=== PATIENT | female | born 1985 | race Caucasian/White ===

== ENCOUNTER → 2020-02-26 | Outpatient (CLI) | payer BC ==
[2020-02-26 14:43] LABS: CHLORIDE 105 mEq/L (98-107)
[2020-02-26 15:30] LABS: BASOPHILS % 0.3 % (0.0-2.0); EOSINOPHILS % 2.2 % (0.0-5.0); HEMATOCRIT. 40.2 % (36.0-48.0); HEMOGLOBIN. 13.4 g/dL (12.0-16.0); MEAN CORPUSCULAR HEMOGLOBIN 30.4 pg (28.0-32.0); MEAN CORPUSCULAR VOLUME 91.1 fL (81.0-99.0); MEAN PLATELET VOLUME 8.1 fl (7.4-10.4); MONOCYTES % 4.9 % (2.0-8.0); NEUTROPHILS % 67.6 % (40.0-76.0); PLATELET 196 x1000/uL (130-400); RED BLOOD CELL COUNT 4.41 mill/uL (4.2-5.4); RED CELL DISTRIBUTION WIDTH 13.6 % (11.6-14.6)
== END | disposition home or self-care (01) ==
LOC: LAB 14:11
DX: Z00.00 Encounter for general adult medical examination without abnormal findings (principal)
CPT/HCPCS: 36415; 80048; 85025

== ENCOUNTER → 2020-12-07 | Outpatient (CLI) | payer BC ==
[2020-12-07 10:31] LABS: BASOPHILS % 0.4 % (0.0-2.0); EOSINOPHILS % 5.2 % (0.0-5.0); HEMATOCRIT. 41.5 % (36.0-48.0); HEMOGLOBIN. 13.8 g/dL (12.0-16.0); LYMPHOCYTES % 32.8 % (20.0-50.0); MEAN CORPUSCULAR HEMOGLOBIN 29.7 pg (28.0-32.0); MEAN CORPUSCULAR VOLUME 89.2 fL (81.0-99.0); MEAN PLATELET VOLUME 7.8 fl (7.4-10.4); MONOCYTES % 6.2 % (2.0-8.0); NEUTROPHILS % 55.4 % (40.0-76.0); PLATELET 225 x1000/uL (130-400); RED BLOOD CELL COUNT 4.66 mill/uL (4.2-5.4); RED CELL DISTRIBUTION WIDTH 13.8 % (11.6-14.6)
[2020-12-07 10:40] LABS: CHLORIDE 108 mEq/L (98-107)
[2020-12-07 10:52] LABS: HDL CHOLESTEROL 53 mg/dL (40-59)
[2020-12-07 10:55] LABS: LDL CHOLESTEROL 97 mg/dL (5-100)
== END | disposition home or self-care (01) ==
LOC: LAB 09:57
PROVIDERS: ATTEND Family Medicine
DX: Z00.00 Encounter for general adult medical examination without abnormal findings (principal)
CPT/HCPCS: 36415; 80053; 80061; 83036; 84443; 85025; 87077; 87186

== ENCOUNTER → 2021-03-12 | Outpatient (CLI) | payer BC ==
[2021-03-12 11:55] LABS: BASOPHILS % 0.2 % (0.0-2.0); EOSINOPHILS % 4.4 % (0.0-5.0); HEMATOCRIT. 37.9 % (36.0-48.0); HEMOGLOBIN. 13.2 g/dL (12.0-16.0); LYMPHOCYTES % 25.4 % (20.0-50.0); MEAN CORPUSCULAR VOLUME 88.9 fL (81.0-99.0); MEAN PLATELET VOLUME 7.9 fl (7.4-10.4); MONOCYTES % 5.3 % (2.0-8.0); NEUTROPHILS % 64.7 % (40.0-76.0); PLATELET 208 x1000/uL (130-400); RED BLOOD CELL COUNT 4.27 mill/uL (4.2-5.4); RED CELL DISTRIBUTION WIDTH 13.7 % (11.6-14.6)
[2021-03-12 12:53] LABS: TOTAL IRON BINDING CAPACITY 305 ug/dL (250-450)
== END | disposition home or self-care (01) ==
LOC: LAB 11:10
PROVIDERS: ATTEND Family Medicine
DX: D64.9 Anemia, unspecified (principal)
CPT/HCPCS: 36415; 82306; 83540; 83550; 85025

== ENCOUNTER → 2021-05-02 | Outpatient (CLI) | payer BC ==
[2021-05-02 09:42] LABS: BASOPHILS % 0.3 % (0.0-2.0); HEMATOCRIT. 39.9 % (36.0-48.0); HEMOGLOBIN. 13.5 g/dL (12.0-16.0); LYMPHOCYTES % 27.9 % (20.0-50.0); MEAN CORPUSCULAR HEMOGLOBIN 29.6 pg (28.0-32.0); MEAN CORPUSCULAR VOLUME 87.8 fL (81.0-99.0); MEAN PLATELET VOLUME 8.7 fl (7.4-10.4); MONOCYTES % 4.5 % (2.0-8.0); NEUTROPHILS % 62.3 % (40.0-76.0); PLATELET 200 x1000/uL (130-400); RED BLOOD CELL COUNT 4.55 mill/uL (4.2-5.4); RED CELL DISTRIBUTION WIDTH 13.9 % (11.6-14.6)
[2021-05-02 09:52] LABS: CHLORIDE 107 mEq/L (98-107)
[2021-05-02 09:59] LABS: LDL CHOLESTEROL 100 mg/dL (5-100)
[2021-05-02 10:01] LABS: HDL CHOLESTEROL 39 mg/dL (40-59); T4 FREE 0.98 ng/dL (0.76-1.46)
[2021-05-03 07:11] LABS: FOLICLE STIMULATING HORMONE 11.6 mIU/mL (.); LUTEINIZING HORMONE 84.2 mIU/mL (.); PROGESTERONE 0.8 ng/mL (.); THYROID PEROXIDASE ANTIBODY < 8 IU/mL (0-34)
== END | disposition home or self-care (01) ==
LOC: LAB 08:31
PROVIDERS: ATTEND Internal Medicine Endocrinology, Diabetes & Metabolism
DX: E11.65 Type 2 diabetes mellitus with hyperglycemia (principal); R53.1 Weakness; E03.9 Hypothyroidism, unspecified
CPT/HCPCS: 36415; 80053; 80061; 82024; 82533; 82670; 83001; 83002; 83036; 84144; 84439; 84443; 84481; 85025; 86376

== ENCOUNTER → 2021-05-24 | Outpatient (CLI) | payer BC ==
[2021-05-24 09:09] LABS: BASOPHILS % 0.3 % (0.0-2.0); EOSINOPHILS % 6.1 % (0.0-5.0); HEMATOCRIT. 39.5 % (36.0-48.0); HEMOGLOBIN. 13.5 g/dL (12.0-16.0); LYMPHOCYTES % 27.3 % (20.0-50.0); MEAN CORPUSCULAR HEMOGLOBIN 30.1 pg (28.0-32.0); MEAN CORPUSCULAR VOLUME 87.8 fL (81.0-99.0); MEAN PLATELET VOLUME 8.3 fl (7.4-10.4); MONOCYTES % 4.9 % (2.0-8.0); NEUTROPHILS % 61.4 % (40.0-76.0); PLATELET 219 x1000/uL (130-400); RED CELL DISTRIBUTION WIDTH 14.3 % (11.6-14.6)
[2021-05-24 09:21] LABS: CHLORIDE 110 mEq/L (98-107)
[2021-05-25 09:07] LABS: FOLICLE STIMULATING HORMONE 6.9 mIU/mL (.); LUTEINIZING HORMONE 11.5 mIU/mL (.)
== END | disposition home or self-care (01) ==
LOC: LAB 08:27
PROVIDERS: ATTEND Internal Medicine Endocrinology, Diabetes & Metabolism
DX: R53.82 Chronic fatigue, unspecified (principal)
CPT/HCPCS: 36415; 80053; 82157; 82626; 83001; 83002; 84146; 84305; 84402; 84403; 85025

== ENCOUNTER → 2021-07-10 | Outpatient (CLI) | payer BC | END | disposition home or self-care (01) | LOC: MRI 13:56 | PROVIDERS: ATTEND Family Medicine | DX: M47.27 Other spondylosis with radiculopathy, lumbosacral region (principal); R07.2 Precordial pain; M79.669 Pain in unspecified lower leg | CPT/HCPCS: 72148; 72195 ==

== ENCOUNTER → 2021-09-02 | Outpatient (CLI) | payer BC ==
[2021-09-02 13:17] LABS: BASOPHILS % 0.4 % (0.0-2.0); EOSINOPHILS % 4.8 % (0.0-5.0); HEMATOCRIT. 41.2 % (36.0-48.0); HEMOGLOBIN. 13.7 g/dL (12.0-16.0); LYMPHOCYTES % 27.6 % (20.0-50.0); MEAN CORPUSCULAR HEMOGLOBIN 30.1 pg (28.0-32.0); MEAN CORPUSCULAR VOLUME 90.2 fL (81.0-99.0); MEAN PLATELET VOLUME 8.4 fl (7.4-10.4); MONOCYTES % 4.7 % (2.0-8.0); NEUTROPHILS % 62.5 % (40.0-76.0); PLATELET 208 x1000/uL (130-400); RED BLOOD CELL COUNT 4.57 mill/uL (4.2-5.4); RED CELL DISTRIBUTION WIDTH 13.3 % (11.6-14.6)
[2021-09-02 13:37] LABS: T4 FREE 1.17 ng/dL (0.76-1.46)
[2021-09-02 16:30] LABS: HEPATITIS B SURFACE AB 21.1 mIU/mL; TRIOIODOTHYRONINE TOTAL 1.13 ng/ml (0.60-1.81)
[2021-09-04 09:09] LABS: HBSAG SCREEN Negative (Negative); HEPATITIS C AB 0.2 s/co ratio (0.0-0.9); HIV SCREEN 4G Non Reactive (Non Reactive)
[2021-09-05 08:09] LABS: HGB A2 2.8 % (1.8-3.2)
[2021-09-07 04:07] LABS: 25-HYDROXY VITAMIN D3 56 ng/mL (.)
== END | disposition home or self-care (01) ==
LOC: LAB 08:46
PROVIDERS: ATTEND Obstetrics & Gynecology Obstetrics
DX: Z34.00 Encounter for supervision of normal first pregnancy, unspecified trimester (principal); E55.9 Vitamin D deficiency, unspecified; Z3A.00 Weeks of gestation of pregnancy not specified
CPT/HCPCS: 36415; 82306; 82947; 83021; 83036; 84439; 84443; 84480; 85025; 85660; 86592; 86706; 86762; 86765; 86803; 86850; 86900; 87340; 87389

== ENCOUNTER → 2021-10-25 | Outpatient (CLI) | payer BC | END | disposition home or self-care (01) | LOC: LAB 13:53 | DX: Z33.1 Pregnant state, incidental (principal) ==

== ENCOUNTER → 2021-11-22 | Outpatient (CLI) | payer BC | END | disposition home or self-care (01) | LOC: US 11:47 | PROVIDERS: ATTEND Obstetrics & Gynecology Obstetrics | DX: R10.9 Unspecified abdominal pain (principal) | CPT/HCPCS: 76770 ==

== ENCOUNTER 2021-12-16 15:24 | Inpatient (IN) | payer BC ==
[~2021-12-16] VITALS: Ht 175.3 cm; Wt 75.0 kg
[2021-12-16] MEDS ORDERED: SODIUM CHLORIDE 0.9% 1,000 ML IV ONE (16:30)
[2021-12-16 16:48] LABS: BASOPHILS % 0.1 % (0.0-2.0); EOSINOPHILS % 2.2 % (0.0-5.0); HEMATOCRIT. 38.7 % (36.0-48.0); HEMOGLOBIN. 13.4 g/dL (12.0-16.0); LYMPHOCYTES % 14.1 % (20.0-50.0); MEAN CORPUSCULAR HEMOGLOBIN 30.6 pg (28.0-32.0); MEAN CORPUSCULAR VOLUME 88.5 fL (81.0-99.0); MEAN PLATELET VOLUME 8.5 fl (7.4-10.4); MONOCYTES % 4.1 % (2.0-8.0); NEUTROPHILS % 79.5 % (40.0-76.0); PLATELET 220 x1000/uL (130-400); RED BLOOD CELL COUNT 4.37 mill/uL (4.2-5.4); RED CELL DISTRIBUTION WIDTH 13.3 % (11.6-14.6)
[2021-12-16 16:53] LABS: CHLORIDE 102 mEq/L (98-107)
[2021-12-16 16:58] LABS: D-DIMER 1.38 mg/L FEU (<0.50); INR 0.9; PROTHROMBIN TIME 9.8 sec (9.6-11.0)
[2021-12-16] MEDS ORDERED: SODIUM CHLORIDE 0.9% 500 ML IV ONE (23:30)
[2021-12-17 00:32] LABS: CLARITY URINE CLEAR (CLEAR); COLOR URINE YELLOW (YELLOW); PH URINE 6.5 (4.5-8.0); SPECIFIC GRAVITY URINE 1.015 (1.005-1.030)
[2021-12-17 00:33] LABS: KETONES URINE NEGATIVE (NEGATIVE); LEUKOCYTE ESTERASE URINE NEGATIVE (NEGATIVE); NITRITE URINE NEGATIVE (NEGATIVE); OCCULT BLOOD URINE NEGATIVE (NEGATIVE); PROTEIN URINE NEGATIVE (NEGATIVE); UROBILINOGEN URINE 0.2 E.U./dL (0.2-1.0)
[2021-12-17] MEDS ORDERED: SODIUM CHLORIDE 0.9% 1,000 ML IV ONE (05:45)
[2021-12-17] MEDS ORDERED: IOHEXOL-350 100 ML BOTTLE ONE (10:52)
[2021-12-17 10:59] VITALS: BP 104/59
[2021-12-17 11:00] VITALS: BP 118/59
[2021-12-17 11:41] VITALS: BP 106/56
== END 2021-12-17 12:15 | disposition home or self-care (01) | DRG 833 ==
LOC: ER 15:46 → 7EST 12-17 08:46 → EDBEDREQTM 12-17 08:51 → EDBEDREQ 12-17 08:51 → ENRESERV 12-17 09:09
PROVIDERS: ADMIT Hospitalist; ATTEND Hospitalist
DX: O26.52 Maternal hypotension syndrome, second trimester (principal); O99.512 Diseases of the respiratory system complicating pregnancy, second trimester; J45.909 Unspecified asthma, uncomplicated; K58.9 Irritable bowel syndrome, unspecified; O99.612 Diseases of the digestive system complicating pregnancy, second trimester; N80.03 Adenomyosis of the uterus; O34.82 Maternal care for other abnormalities of pelvic organs, second trimester; Z3A.21 21 weeks gestation of pregnancy; Z88.2 Allergy status to sulfonamides; Z88.8 Allergy status to other drugs, medicaments and biological substances; Z88.1 Allergy status to other antibiotic agents
CPT/HCPCS: 36415; 71045; 71275; 76805; 80053; 81003; 84484; 85025; 85379; 93005; 93970; 99285; J7030; J7040; Q9967

== ENCOUNTER → 2021-12-27 | Outpatient (CLI) | payer BC ==
[2021-12-27 12:51] LABS: BASOPHILS % 0.1 % (0.0-2.0); EOSINOPHILS % 2.2 % (0.0-5.0); HEMATOCRIT. 33.6 % (36.0-48.0); HEMOGLOBIN. 11.5 g/dL (12.0-16.0); LYMPHOCYTES % 18.4 % (20.0-50.0); MEAN CORPUSCULAR HEMOGLOBIN 30.7 pg (28.0-32.0); MEAN CORPUSCULAR VOLUME 89.4 fL (81.0-99.0); MEAN PLATELET VOLUME 7.8 fl (7.4-10.4); NEUTROPHILS % 74.3 % (40.0-76.0); PLATELET 206 x1000/uL (130-400); RED BLOOD CELL COUNT 3.75 mill/uL (4.2-5.4); RED CELL DISTRIBUTION WIDTH 13.5 % (11.6-14.6)
[2021-12-27 13:08] LABS: CHLORIDE 105 mEq/L (98-107)
[2021-12-27 13:21] LABS: HDL CHOLESTEROL 61 mg/dL (40-59); LDL CHOLESTEROL 106 mg/dL (5-100); T4 FREE 0.96 ng/dL (0.76-1.46)
== END | disposition home or self-care (01) ==
LOC: LAB 12:18
PROVIDERS: ATTEND Specialist
DX: E11.9 Type 2 diabetes mellitus without complications (principal); E78.2 Mixed hyperlipidemia; E55.9 Vitamin D deficiency, unspecified; D64.9 Anemia, unspecified
CPT/HCPCS: 36415; 80053; 80061; 82306; 83036; 84439; 84443; 85025

== ENCOUNTER → 2022-01-24 | Outpatient (CLI) | payer BC | END | disposition home or self-care (01) | LOC: LAB 11:35 | PROVIDERS: ATTEND Obstetrics & Gynecology Obstetrics | DX: Z13.1 Encounter for screening for diabetes mellitus (principal) | CPT/HCPCS: 82947; 82950 ==

== ENCOUNTER → 2022-02-21 | Day surgery (SDC) | payer BC | END | disposition home or self-care (01) | LOC: CARD 10:10 | PROVIDERS: ATTEND Specialist | DX: R00.2 Palpitations (principal); I10 Essential (primary) hypertension | CPT/HCPCS: 93306 ==

== ENCOUNTER → 2022-02-22 | Outpatient (CLI) | payer BC | END | disposition home or self-care (01) | LOC: LAB 10:57 | PROVIDERS: ATTEND Obstetrics & Gynecology Obstetrics | DX: O99.810 Abnormal glucose complicating pregnancy (principal); Z3A.34 34 weeks gestation of pregnancy | CPT/HCPCS: 36415; 82951 ==

== ENCOUNTER 2022-04-02 12:00 | Observation (INO) | payer BC ==
[~2022-04-02] VITALS: Ht 176.5 cm; Wt 74.8 kg
== END 2022-04-02 13:05 | disposition home or self-care (01) ==
LOC: 8 EST LDRP 12:00
PROVIDERS: ADMIT Obstetrics & Gynecology Obstetrics; ATTEND Obstetrics & Gynecology Obstetrics
DX: O42.913 Preterm premature rupture of membranes, unspecified as to length of time between rupture and onset of labor, third trimester (principal); Z3A.36 36 weeks gestation of pregnancy
CPT/HCPCS: 59025; 99281; G0378

== ENCOUNTER 2022-04-18 22:19 | Inpatient (IN) | payer BC ==
[~2022-04-18] VITALS: Ht 176.5 cm; Wt 74.8 kg
[2022-04-18] MEDS ORDERED: LIDOCAINE HCL 1% 10 MG/ML 10ML VIAL IJ SCH (22:45)
[2022-04-18] MEDS ORDERED: BUTORPHANOL TARTRATE 2 MG/ML VIAL IV PRN (22:45)
[2022-04-18] MEDS ORDERED: METHYLERGONOVINE MALEATE 0.2 MG/ML IM PRN (22:45)
[2022-04-18] MEDS ORDERED: RHO(D) IMMUNE GLOBULIN 300 MCG/SYR IM ONE (22:45)
[2022-04-18] MEDS ORDERED: MISOPROSTOL 100MCG TABLET VG SCH (22:45)
[2022-04-18] MEDS ORDERED: CARBOPROST TROMETHAMINE 250 MCG/ML AMPUL IM PRN (22:45)
[2022-04-18] MEDS ORDERED: NALOXONE HCL 0.4 MG/ML 1ML VIAL IM PRN (22:45)
[2022-04-18] MEDS: LACTATED RINGERS 1,000 ML IV SCH (23:39)
[2022-04-18 23:46] LABS: CLARITY URINE CLEAR (CLEAR); COLOR URINE YELLOW (YELLOW); KETONES URINE NEGATIVE (NEGATIVE); LEUKOCYTE ESTERASE URINE NEGATIVE (NEGATIVE); NITRITE URINE NEGATIVE (NEGATIVE); OCCULT BLOOD URINE NEGATIVE (NEGATIVE); PH URINE 7.5 (4.5-8.0); PROTEIN URINE NEGATIVE (NEGATIVE); SPECIFIC GRAVITY URINE 1.007 (1.005-1.030); UROBILINOGEN URINE 0.2 E.U./dL (0.2-1.0)
[2022-04-18 23:50] LABS: BASOPHILS % 0.2 % (0.0-2.0); EOSINOPHILS % 1.7 % (0.0-5.0); HEMATOCRIT. 37.5 % (36.0-48.0); HEMOGLOBIN. 12.6 g/dL (12.0-16.0); LYMPHOCYTES % 18.1 % (20.0-50.0); MEAN CORPUSCULAR VOLUME 86.7 fL (81.0-99.0); MEAN PLATELET VOLUME 8.8 fl (7.4-10.4); MONOCYTES % 4.5 % (2.0-8.0); NEUTROPHILS % 75.5 % (40.0-76.0); PLATELET 187 x1000/uL (130-400); RED BLOOD CELL COUNT 4.32 mill/uL (4.2-5.4); RED CELL DISTRIBUTION WIDTH 15.2 % (11.6-14.6)
[2022-04-18 23:57] LABS: *AMPHETAMINES SCREEN URINE NEGATIVE (NEGATIVE); *BARBITURATES SCREEN URINE NEGATIVE (NEGATIVE); *BENZODIAZEPINES SCREEN URINE NEGATIVE (NEGATIVE); *COCAINE SCREEN URINE NEGATIVE (NEGATIVE); CANNABINOID URINE SCREEN NEGATIVE (NEGATIVE); INR 0.9; METHADONE URINE SCREEN NEGATIVE (NEGATIVE); OPIATES URINE SCREEN NEGATIVE (NEGATIVE); PARTIAL THROMBOPLASTIN TIME 26.6 sec (23.4-31.0); PHENCYCLIDINE URINE SCREEN NEGATIVE (NEGATIVE); PROTHROMBIN TIME 9.9 sec (9.6-11.0)
[2022-04-19] MEDS ORDERED: PNV1TABL76 PO (00:45)
[2022-04-19] MEDS ORDERED: VIT1TABL62 PO (00:45)
[2022-04-19] MEDS ORDERED: FERR325T6 PO (00:45)
[2022-04-19] MEDS: LACTATED RINGERS 1,000 ML IV SCH ×3 (00:52→09:06)
[2022-04-19] MEDS ORDERED: ROPIVACAINE HCL/PF EPIDURAL 200 ML EPI SCH (01:00)
[2022-04-19 01:57] LABS: HEPATITIS B SURFACE ANTIGEN NEGATIVE
[2022-04-19] MEDS: ONDANSETRON HCL 4MG/2ML INJ IV PRN ×2 (04:26→09:03)
[2022-04-19] MEDS ORDERED: ONDANSETRON HCL 4MG/2ML INJ IV PRN (04:45)
[2022-04-19] MEDS ORDERED: MINERAL OIL 30ML BOTTLE TOP NR (05:45)
[2022-04-19] MEDS ORDERED: BENZOCAINE/LANOLIN/ALOE VERA SPRAY TOP PRN (10:45)
[2022-04-19] MEDS ORDERED: LANOLIN OINT 7GM TUBE TOP PRN (10:45)
[2022-04-19] MEDS ORDERED: IBUPROFEN 400MG TABLET PO PRN (10:45)
[2022-04-19] MEDS ORDERED: BISACODYL 10MG SUPP PR PRN (10:45)
[2022-04-19] MEDS ORDERED: ACETAMINOPHEN 500MG TABLET PO PRN (10:45)
[2022-04-19] MEDS: OXYTOCIN 30 UNITS/500ML NS PMX 500 ML IV SCH ×2 (11:09→11:25)
[2022-04-19 14:00] VITALS: BP 109/65
[2022-04-19 16:10] VITALS: BP 108/59
[2022-04-19 19:30] VITALS: BP 109/56
[2022-04-20 04:00] VITALS: BP 96/50
[2022-04-20] MEDS: GLYCERIN/WITCH HAZEL LEAF MEDICATED PAD TOP PRN ×2 (04:47→13:07)
[2022-04-20 07:59] LABS: BASOPHILS % 0.1 % (0.0-2.0); EOSINOPHILS % 1.1 % (0.0-5.0); LYMPHOCYTES % 11.7 % (20.0-50.0); MEAN PLATELET VOLUME 8.5 fl (7.4-10.4); MONOCYTES % 3.7 % (2.0-8.0); NEUTROPHILS % 83.4 % (40.0-76.0); PLATELET 153 x1000/uL (130-400); RED BLOOD CELL COUNT 3.79 mill/uL (4.2-5.4); RED CELL DISTRIBUTION WIDTH 15.7 % (11.6-14.6)
[2022-04-20 08:00] VITALS: BP 96/59
[2022-04-23 04:17] LABS: HIV SCREEN 4G Non Reactive (Non Reactive)
== END 2022-04-20 14:40 | disposition home or self-care (01) | DRG 807 ==
LOC: 8 EST LDRP 22:19 → OBSVTOIN 22:19 → 8EST 04-19 14:00
PROVIDERS: ADMIT Obstetrics & Gynecology Obstetrics; ATTEND Obstetrics & Gynecology Obstetrics
PROC: 10E0XZZ Delivery of Products of Conception, External Approach (ICD-10-PCS; principal; 2022-04-20)
DX: O80 Encounter for full-term uncomplicated delivery (principal); Z37.0 Single live birth; Z3A.38 38 weeks gestation of pregnancy; Z20.822 Contact with and (suspected) exposure to COVID-19; Z88.0 Allergy status to penicillin; Z88.2 Allergy status to sulfonamides; Z88.3 Allergy status to other anti-infective agents
CPT/HCPCS: 36415; 80305; 81003; 85025; 86592; 86762; 86850; 86900; 87340; 87389; 87426; 99281; G0378; J0595; J2405; J2795; A4315; J2590

== ENCOUNTER 2024-01-03 12:18 | Emergency (ER) | payer BC ==
[~2024-01-03 12:18] MED LIST: FERR325T6 PO; PNV1TABL76 PO; VIT1TABL62 PO
[2024-01-03 13:25] LABS: BASOPHILS % 0.5 % (0.0-2.0); EOSINOPHILS % 3.6 % (0.0-5.0); HEMATOCRIT. 44.7 % (36.0-48.0); HEMOGLOBIN. 14.5 g/dL (12.0-16.0); LYMPHOCYTES % 23.7 % (20.0-50.0); MEAN CORPUSCULAR HEMOGLOBIN 29.3 pg (28.0-32.0); MEAN CORPUSCULAR HGB CONC 32.5 g/dL (31.0-37.0); MEAN CORPUSCULAR VOLUME 89.9 fL (81.0-99.0); MONOCYTES % 4.2 % (2.0-8.0); PLATELET 251 x1000/uL (130-400); RED BLOOD CELL COUNT 4.97 mill/uL (4.2-5.4); RED CELL DISTRIBUTION WIDTH 14.3 % (11.6-14.6); WHITE BLOOD COUNT 5.7 x1000/uL (4.5-11.0)
[2024-01-03 13:37] LABS: CHLORIDE 107 mEq/L (98-107); POTASSIUM 4.2 mEq/L (3.5-5.1); SODIUM 138 mEq/L (136-145)
[2024-01-03 13:38] LABS: CALCIUM 10.2 mg/dL (8.7-10.4); CARBON DIOXIDE 26 mEq/L (21-32)
[2024-01-03 13:43] LABS: CREATININE 0.7 mg/dL (0.6-1.0); GLUCOSE 89 mg/dL (70-105); TRIGLYCERIDE 77 mg/dL (0-150); UREA NITROGEN BLOOD 12 mg/dL (9-23)
[2024-01-03 13:44] LABS: LDL CHOLESTEROL 140 mg/dL (5-100)
[2024-01-03 13:45] LABS: ALANINE AMINOTRANSFERASE 13 IU/L (10-49); ALBUMIN 5.1 g/dL (3.2-4.8); ASPARTATE AMINOTRANSFERASE 16 IU/L (<34); CHOLESTEROL 209 mg/dL (<200); HDL CHOLESTEROL 57 mg/dL (>65)
[2024-01-03 13:46] LABS: BILIRUBIN TOTAL 0.6 mg/dL (0.1-1.0); PROTEIN TOTAL 8.4 g/dL (6.0-8.3)
[2024-01-03 13:48] LABS: VITAMIN B12 SERUM 615 pg/mL (211-911)
[2024-01-03 13:49] LABS: THYROID STIMULATING HORMONE 1.11 uIU/mL (0.55-4.78)
[2024-01-06 09:06] LABS: FOLICLE STIMULATING HORMONE 4.4 mIU/mL (.)
[2024-01-06 13:12] LABS: ANTI-NUCLEAR ANTIBODIES DIRECT Negative (Negative)
== END 2024-01-03 13:01 | disposition left against medical advice (07) ==
LOC: ER 12:18
DX: R68.89 Other general symptoms and signs (principal); Z53.21 Procedure and treatment not carried out due to patient leaving prior to being seen by health care provider
CPT/HCPCS: 99281

== ENCOUNTER → 2024-03-29 | Outpatient (CLI) | payer BC ==
[2024-03-29 12:32] LABS: BASOPHILS % 0.3 % (0.0-2.0); EOSINOPHILS % 4.8 % (0.0-5.0); HEMATOCRIT. 35.9 % (36.0-48.0); HEMOGLOBIN. 12.1 g/dL (12.0-16.0); LYMPHOCYTES % 29.4 % (20.0-50.0); MEAN CORPUSCULAR HEMOGLOBIN 30.2 pg (28.0-32.0); MEAN CORPUSCULAR HGB CONC 33.7 g/dL (31.0-37.0); MEAN CORPUSCULAR VOLUME 89.7 fL (81.0-99.0); MEAN PLATELET VOLUME 8.4 fl (7.4-10.4); NEUTROPHILS % 60.5 % (40.0-76.0); PLATELET 211 x1000/uL (130-400); RED BLOOD CELL COUNT 4.01 mill/uL (4.2-5.4); RED CELL DISTRIBUTION WIDTH 14.1 % (11.6-14.6); WHITE BLOOD COUNT 5.2 x1000/uL (4.5-11.0)
[2024-03-29 12:33] LABS: CLARITY URINE CLEAR (CLEAR); COLOR URINE YELLOW (YELLOW); GLUCOSE URINE NEGATIVE (NEGATIVE); KETONES URINE NEGATIVE (NEGATIVE); LEUKOCYTE ESTERASE URINE NEGATIVE (NEGATIVE); NITRITE URINE NEGATIVE (NEGATIVE); OCCULT BLOOD URINE 3+ (NEGATIVE); PROTEIN URINE NEGATIVE (NEGATIVE); SPECIFIC GRAVITY URINE 1.003 (1.005-1.030); UROBILINOGEN URINE 0.2 E.U./dL (0.2-1.0)
[2024-03-29 12:36] LABS: CHLORIDE 110 mEq/L (98-107); POTASSIUM 3.3 mEq/L (3.5-5.1); SODIUM 142 mEq/L (136-145)
[2024-03-29 12:37] LABS: CALCIUM 9.3 mg/dL (8.7-10.4); CARBON DIOXIDE 23 mEq/L (21-32)
[2024-03-29 12:42] LABS: CREATININE 0.7 mg/dL (0.6-1.0); GLUCOSE 95 mg/dL (70-105); UREA NITROGEN BLOOD 11 mg/dL (9-23)
[2024-03-29 12:43] LABS: C REACTIVE PROTEIN HIGH SENS 4.99 mg/l (<1.00)
[2024-03-29 12:44] LABS: ALANINE AMINOTRANSFERASE 9 IU/L (10-49); ALBUMIN 3.9 g/dL (3.2-4.8); ASPARTATE AMINOTRANSFERASE 13 IU/L (<34); BILIRUBIN TOTAL 0.3 mg/dL (0.1-1.0); CREATINE KINASE 89 IU/L (34-145); PROTEIN TOTAL 6.9 g/dL (6.0-8.3)
[2024-03-29 12:45] LABS: THYROID STIMULATING HORMONE 0.79 uIU/mL (0.55-4.78)
[2024-03-29 13:12] LABS: BACTERIA URINE RARE; RBC URINE 0-2 /hpf (0-2); SQUAMOUS EPITHELIAL CELL URINE FEW /lpf (RARE/1+); WBC URINE 0-2 /hpf (0-2); YEAST URINE NONE SEEN
[2024-03-29 15:37] LABS: ERYTHROCYTE SEDIMENTATION RATE 9 mm/hr (0-20)
[2024-03-30 09:38] LABS: ANTI-NUCLEAR ANTIBODIES DIRECT Negative (Negative); COMPLEMENT C3 147 mg/dL (82-167); COMPLEMENT C4 17 mg/dL (12-38); SJOGRENS ANTI SS-A < 0.2 AI (0.0-0.9); SJOGRENS ANTI SS-B < 0.2 AI (0.0-0.9); SMITH ABS < 0.2 AI (0.0-0.9)
[2024-03-31 13:06] LABS: CYC CITRULLINATED PEP IgG/IgA 0 units (0-19)
== END | disposition home or self-care (01) ==
LOC: LAB 11:19
PROVIDERS: ATTEND Internal Medicine Rheumatology
DX: R53.83 Other fatigue (principal); M25.50 Pain in unspecified joint; M79.7 Fibromyalgia; M54.50 Low back pain, unspecified; E55.9 Vitamin D deficiency, unspecified
CPT/HCPCS: 36415; 80053; 81003; 82306; 82550; 84443; 85025; 85651; 86038; 86141; 86160; 86200; 86235

== ENCOUNTER → 2024-04-28 | Outpatient (CLI) | payer BC | END | disposition home or self-care (01) | LOC: US 08:22 | PROVIDERS: ATTEND Obstetrics & Gynecology Gynecology | DX: R10.2 Pelvic and perineal pain (principal); N93.9 Abnormal uterine and vaginal bleeding, unspecified | CPT/HCPCS: 76830; 76856 ==

== ENCOUNTER → 2024-05-03 | Outpatient (CLI) | payer BC ==
[2024-05-03 16:18] LABS: BASOPHILS % 0.2 % (0.0-2.0); EOSINOPHILS % 3.5 % (0.0-5.0); HEMATOCRIT. 39.3 % (36.0-48.0); LYMPHOCYTES % 22.8 % (20.0-50.0); MEAN CORPUSCULAR HEMOGLOBIN 29.7 pg (28.0-32.0); MEAN PLATELET VOLUME 8.5 fl (7.4-10.4); NEUTROPHILS % 70.5 % (40.0-76.0); PLATELET 250 x1000/uL (130-400); RED BLOOD CELL COUNT 4.37 mill/uL (4.2-5.4); RED CELL DISTRIBUTION WIDTH 14.4 % (11.6-14.6)
[2024-05-05 08:08] LABS: FOLICLE STIMULATING HORMONE < 0.3 mIU/mL (.); PROLACTIN 6.5 ng/mL (4.8-33.4)
== END | disposition home or self-care (01) ==
LOC: LAB 15:21
DX: R10.2 Pelvic and perineal pain (principal)
CPT/HCPCS: 36415; 83001; 84146; 84443; 85025

== ENCOUNTER → 2024-11-03 | Outpatient (CLI) | payer BC ==
[~2024-11-03] MED LIST changes: +DIAZ2TAB MT; +PSEU-224 MT
== END | disposition home or self-care (01) ==
LOC: MRI 12:49
DX: M51.16 Intervertebral disc disorders with radiculopathy, lumbar region (principal); M53.3 Sacrococcygeal disorders, not elsewhere classified; M48.07 Spinal stenosis, lumbosacral region
CPT/HCPCS: 72148

== ENCOUNTER 2024-11-07 15:19 | Emergency (ER) | payer BC ==
[~2024-11-07] VITALS: Ht 177.8 cm; Wt 74.0 kg
[~2024-11-07 15:19] MED LIST changes: -DIAZ2TAB MT; -PSEU-224 MT
[2024-11-07 15:23] VITALS: O2SAT 100
[2024-11-07 15:45] LABS: BASOPHILS % 0.0 % (0.0-2.0); EOSINOPHILS % 4.0 % (0.0-5.0); HEMATOCRIT. 43.4 % (36.0-48.0); HEMOGLOBIN. 14.7 g/dL (12.0-16.0); LYMPHOCYTES % 11.7 % (20.0-50.0); MEAN PLATELET VOLUME 8.1 fl (7.4-10.4); MONOCYTES % 4.1 % (2.0-8.0); NEUTROPHILS % 80.2 % (40.0-76.0); PLATELET 228 x1000/uL (130-400); RED BLOOD CELL COUNT 4.75 mill/uL (4.2-5.4); RED CELL DISTRIBUTION WIDTH 14.2 % (11.6-14.6)
[2024-11-07 15:59] LABS: CREATININE 0.8 mg/dL (0.6-1.0); UREA NITROGEN BLOOD 7 mg/dL (9-23)
[2024-11-07] MEDS: FAMOTIDINE 20MG TABLET PO ONE (16:15)
[2024-11-07] MEDS: ONDANSETRON 4MG ODT PO ONE (16:15)
[2024-11-07 16:30] LABS: CLARITY URINE CLEAR (CLEAR); COLOR URINE YELLOW (YELLOW); GLUCOSE URINE NEGATIVE (NEGATIVE); KETONES URINE NEGATIVE (NEGATIVE); LEUKOCYTE ESTERASE URINE NEGATIVE (NEGATIVE); NITRITE URINE NEGATIVE (NEGATIVE); OCCULT BLOOD URINE NEGATIVE (NEGATIVE); PH URINE 6.0 (4.5-8.0); PROTEIN URINE NEGATIVE (NEGATIVE); SPECIFIC GRAVITY URINE 1.006 (1.005-1.030); UROBILINOGEN URINE 0.2 E.U./dL (0.2-1.0)
[2024-11-07 16:51] LABS: INFLUENZA TYPE A Presumptive Negative (Pres. Neg.); INFLUENZA TYPE B Presumptive Negative (Pres. Neg.)
[2024-11-07 16:53] LABS: ASPARTATE AMINOTRANSFERASE 14 IU/L (<34); BILIRUBIN DIRECT 0.2 mg/dL (<=3.0); BILIRUBIN TOTAL 0.8 mg/dL (0.1-1.0); PROTEIN TOTAL 7.9 g/dL (6.0-8.3)
[2024-11-07] MEDS ORDERED: DIAZ2TAB MT (18:15)
[2024-11-07] MEDS ORDERED: PSEU-224 MT (18:15)
[2024-11-07 18:32] VITALS: BP 118/77; PULSE 101; RESP 16; TEMP 36.9; O2SAT 100
== END 2024-11-07 18:33 | disposition home or self-care (01) ==
LOC: ER 15:27
DX: R42 Dizziness and giddiness (principal); R09.81 Nasal congestion; J45.909 Unspecified asthma, uncomplicated; M19.90 Unspecified osteoarthritis, unspecified site; Z88.0 Allergy status to penicillin; Z88.1 Allergy status to other antibiotic agents; Z88.2 Allergy status to sulfonamides; Z20.822 Contact with and (suspected) exposure to COVID-19
CPT/HCPCS: 99284; 87426; 80076; 80048; 81003; 85025; 87804 ×2; 36415; 93005; Q0162